=== PATIENT | female | born 1970 | race African-American/Black ===

== ENCOUNTER 2016-06-23 16:24 | Emergency (ER) | payer OTHER ==
[2014-11-25 10:23] VITALS: BP 125/56
[~2016-06-23] VITALS: Ht 149.9 cm; Wt 79.8 kg
[2016-06-23] MEDS ORDERED: IBUPROFEN 400 MG TABLET. PO ONE (17:00)
[2016-06-23] MEDS ORDERED: CYCLOBENZAPRINE 10 MG TABLET. PO ONE (17:00)
[2016-06-23] MEDS ORDERED: CYCL10TA2 PO (17:05)
--- NOTE | 2016-06-23 17:05 | PHYS DOC ---
Past Medical History Past Medical History: No Pertinent History Past Surgical History: No Surgical History Additional Information: /2 ppd Alcohol Use: Occasionally Drug Use: None Adult General Chief Complaint Chief Complaint: Neck Pain [facility] HPI Patient is a 45 year old female presents emergency department stating that she was at work every day and last night when she slipped and fell from where someone had been mopping the floor. She states she landed on her back. She is stating that she is having right upper back pain and discomfort all the way down to her right buttocks site. She is taken ibuprofen 400 mg for pain and discomfort. Patient denies any loss of bowel or bladder. Patient was able to ambulate into the department with no difficulty. Patient states when she moves her upper actually she has increased pain and discomfort. Review of Systems Review of Systems Constitutional: Denies fever or chills [] Eyes: Denies change in visual acuity, redness, or eye pain [] HENT: Denies nasal congestion or sore throat [] Respiratory: Denies cough or shortness of breath [] Cardiovascular: No additional information not addressed in HPI [] GI: Denies abdominal pain, nausea, vomiting, bloody stools or diarrhea [] : Denies dysuria or hematuria [] Musculoskeletal: Denies back pain or joint pain [] Integument: Denies rash or skin lesions [] Neurologic: Denies headache, focal weakness or sensory changes [] Endocrine: Denies polyuria or polydipsia [] Current Medications Current Medications Current Medications Medications (Trade) Dose Ordered Sig/Sara Start Time Stop Time Status Last Admin Dose Admin Cyclobenzaprine HCl (Flexeril) 10 mg 1X ONCE 06/23/16 17:00 06/23/16 17:02 DC Ibuprofen (Motrin) 400 mg 1X ONCE 06/23/16 17:00 06/23/16 17:02 DC Allergies Allergies Allergies Coded Allergies Type Severity Reaction Last Updated Verified Penicillins Allergy Severe anaphylaxis 11/25/14 Yes Physical Exam Physical Exam Constitutional: Well developed, well nourished, no acute distress, non-toxic appearance. [] HENT: Normocephalic, atraumatic, bilateral external ears normal, oropharynx moist, no oral exudates, nose normal. [] Eyes: PERRLA, EOMI, conjunctiva normal, no discharge. [] Neck: Normal range of motion, no tenderness, supple, no stridor. [] Cardiovascular:Heart rate regular rhythm, no murmur [] Lungs & Thorax: Bilateral breath sounds clear to auscultation [] Skin: Warm, dry, no erythema, no rash. [] Back: No cervical spine, thoracic spine or lumbar spine tenderness no crepitus, no deformity or step-offs noted, no CVA tenderness. She was noted to have discomfort on the right paraspinal area and the neck and right lower back area. Extremities: No tenderness, no cyanosis, no clubbing, ROM intact, no edema. She' ll with equal strength any focal director cardiovascular with bilateral upper extremities. Peripheral pulses 2+ cap refill brisk less than 2 seconds. Patient with slight decreased range of motion of the upper extremities due to pain and discomfort. Neurologic: Alert and oriented X 3, normal motor function, normal sensory function, no focal deficits noted. [] Psychologic: Affect normal, judgement normal, mood normal. [] Current Patient Data Vital Signs Vital Signs Date Time Temp Pulse Resp B/P (MAP) Pulse Ox O2 Delivery O2 Flow Rate FiO2 06/23/16 16:39 98.6 76 18 97 Room Air 98.6 EKG EKG [] Radiology/Procedures Radiology/Procedures [] Course & Med Decision Making Course & Med Decision Making Pertinent Labs and Imaging studies reviewed. (See chart for details) Patient will be discharged home in stable condition with. She was recommended to use ibuprofen 800 mg every 8 hours. Patient was also encouraged to use Flexeril to help with muscle spasm she was instructed this medication will cause drowsiness do not take any be alert and oriented. It was also encouraged to use ice packs on 20 minutes off 20 minutes several times a day. Recommendations to follow-up with work comp doctor the next 7-10 days. Signs and symptoms to return back to emergency department been provided. Patient agrees with discharge instructions treatment regimens and follow-up recommendations. Patient was noted to be able to hold the phone up to her head with the right hand without difficulty. She was able to ambulate with swinging her left arm. [] Dragon Disclaimer Dragon Disclaimer This electronic medical record was generated, in whole or in part, using a voice recognition dictation system. Departure Departure Impression: Primary Impression: Fall Additional Impression: Back pain Disposition: 01 HOME, SELF-CARE Condition: STABLE Referrals: NO PCP (PCP) Patient Instructions: Fall Prevention and Home Safety, Muscle Strain, Easy-to- Read Additional Instructions: Activity as tolerated. Ibuprofen 800 mg every 8 hours with food stop taking few develop an upset stomach. Flexeril for muscle spasms and discomfort. This medication will cause drowsiness do not take any be alert and oriented. Ice packs on 20 minutes off 20 minutes several times a day. Follow-up with your work comp doctor in the next 7-10 days. Return back to emergency prior signs symptoms of become worse. Scripts Cyclobenzaprine Hcl (CYCLOBENZAPRINE HCL) 10 Mg Tablet 10 MG PO TID Y for MUSCLE SPASMS, #20 TAB Prov: KB KENDRICK APRN 06/23/16 Problem Qualifiers KB KENDRICK APRN June 23, 2016 17:05
== END 2016-06-23 17:35 | disposition home or self-care (01) ==
LOC: ER 16:24
DX: M54.5 Low back pain (principal); M54.2 Cervicalgia; F17.200 Nicotine dependence, unspecified, uncomplicated; Z88.0 Allergy status to penicillin; W01.0XXA Fall on same level from slipping, tripping and stumbling without subsequent striking against object, initial encounter; Y93.89 Activity, other specified; Y92.89 Other specified places as the place of occurrence of the external cause; Y99.8 Other external cause status
CPT/HCPCS: 99283

== ENCOUNTER 2020-12-27 12:21 | Emergency (ER) | payer SELFPAY ==
[~2020-12-27] VITALS: Ht 149.9 cm; Wt 78.2 kg
[~2020-12-27 12:21] MED LIST: CYCL10TA19 PO
[2020-12-27 13:16] VITALS: BP 162/79
--- NOTE | 2020-12-27 13:19 | PHYS DOC ---
Past Medical History Past Medical History: No Pertinent History Past Surgical History: No Surgical History Smoking Status: Current Every Day Smoker Alcohol Use: None Drug Use: None General Adult EDM: Chief Complaint: NAUSEA/VOMITING/DIARRHEA HPI: HPI: Patient is a 50-year-old female who presents to the emergency department requesting a work note to be released back to normal work, patient reports she came down with a Covid virus 2 weeks ago and took 2 weeks off of work, patient reports she feels 100% better now, has no complaints, denies chest pains, shortness of breath, cough, nasal or chest congestion, fever or chills, denies loss of taste or loss of smell, denies body aches, denies increased thirst or increased urination, reports she had periods of nausea with diarrhea without vomiting, did not notice any blood in her stool or in her urine. Patient denies any symptoms of illness for the past 2 days, reports her job requires a note for her to go back to work. Patient reports her last menstrual cycle was 10 years ago and is post menopausal, patient denies other physical complaints or physical concerns. Patient reports receiving the COVID-19 vaccination series. Patient denies receiving the flu immunization for 2020. Review of Systems: Review of Systems: 14 body systems of review of systems have been reviewed. See HPI for pertinent positives and negative responses, otherwise all other systems are negative, nonpertinent or noncontributory. Constitutional: Negative except as outlined in HPI above. Skin: Negative except as outlined in HPI above. Eyes: Negative except as outlined in HPI above. HENT: Negative except as outlined in HPI above. Respiratory: Negative except as outlined in HPI above. Cardiovascular: Negative except as outlined in HPI above. GI: Negative except as outlined in HPI above. : Negative except as outlined in HPI above. Musculoskeletal: Negative except as outlined in HPI above. Integument: Negative except as outlined in HPI above. Neurologic: Negative except as outlined in HPI above. Endocrine: Negative except as outlined in HPI above. Lymphatic: Negative except as outlined in HPI above. Psychiatric: Negative except as outlined in HPI above. Heart Score: C/O Chest Pain: No Risk Factors: Risk Factors: DM, Current or recent (<one month) smoker, HTN, HLP, family history of CAD, obesity. Risk Scores: Score 0 - 3: 2.5% MACE over next 6 weeks - Discharge Home Score 4 - 6: 20.3% MACE over next 6 weeks - Admit for Clinical Observation Score 7 - 10: 72.7% MACE over next 6 weeks - Early Invasive Strategies Allergies: Allergies: Allergies Coded Allergies Type Severity Reaction Last Updated Verified Penicillins Allergy Severe anaphylaxis 11/25/14 Yes Physical Exam: PE: Constitutional: Well developed, well nourished, no acute distress, non-toxic appearance. 50-year-old female in no apparent distress. HENT: Normocephalic, atraumatic. Eyes: Conjunctiva normal, no discharge. Neck: Normal range of motion, no stridor. Cardiovascular: No cyanosis appreciated, distal cap refill less than 2 seconds. Lungs & Thorax: Patient is in no respiratory distress, no audible adventitious l roxanna sounds appreciated. Abdomen: Nontender, no abnormalities noted. Skin: Warm, dry, no erythema, no rash. Back: No tenderness, no deformities. Extremities: No tenderness, no cyanosis, no clubbing, ROM intact, no edema. Neurologic: Alert and oriented X 3, normal motor function, normal sensory function, no focal deficits noted. Psychologic: Affect normal, judgement normal, mood normal. EKG: EKG: [] Radiology/Procedures: Radiology/Procedures: [] Course & Med Decision Making: Course & Med Decision Making Pertinent Labs and Imaging studies reviewed. (See chart for details) 42-year-old female, vital signs reviewed, blood pressure 168/79, heart rate 73, respirations 16 and unlabored, oral temperature 98.3 F, 99% O2 sat on room air, reports to the emergency department requesting a work note to be released back to normal work. Patient has no symptoms, appears well and is nontoxic in appearance, is in no respiratory distress, physical examination is unremarkable, will release patient back to work. Discussed with the patient all findings and diagnostic testing as well as the need to follow-up with their primary care provider for further evaluation and treatment or return to the ED if any new or worsening symptoms. Strict return precautions were also discussed at length, the patient voiced understanding and agreement with the discharge planning. The patient was nontoxic in appearance, in no apparent distress, and hemodynamically stable at the time of disposition. Janeon Disclaimer: Dragon Disclaimer: This electronic medical record was generated, in whole or in part, using a voice recognition dictation system. Departure Departure Impression: Primary Impression: Encounter to obtain excuse from work Disposition: 01 HOME / SELF CARE / HOMELESS Condition: GOOD Referrals: NO PCP (PCP) Additional Instructions: You are seen today in the emergency department to obtain a work note to go back to work. You have no physical illness or symptoms at this time, I have provided you a note to release you back to normal work. You had noted you do not have a primary care provider, I have attached to this document a list of area clinics and health care providers, please choose a healthcare provider to establish primary care for ongoing health care. Thank you for visiting our Emergency Department. It was a pleasure taking care of you today in the emergency department and we appreciate you trusting us with your care. If any additional problems come up don't hesitate to return to visit us. Please follow up with your primary care provider so they can plan additional care if needed and know about the problem that you had. If symptoms worsen come back to the Emergency Department. Any concerning symptoms that start such as chest pain, shortness of air, weakness or numbness on one side of the body, running high fevers or any other concerning symptoms return to the ER. CANDIE SANABRIA APRN Dec 27, 2020 13:19
== END 2020-12-27 13:25 | disposition home or self-care (01) ==
LOC: ER 12:21
DX: Z02.89 Encounter for other administrative examinations (principal); F17.200 Nicotine dependence, unspecified, uncomplicated; Z88.0 Allergy status to penicillin
CPT/HCPCS: 99281